=== PATIENT | male | born 1950 | race Caucasian/White ===

== ENCOUNTER 2018-03-30 08:34 | Day surgery (SDC) | payer SELFPAY ==
[2018-03-30 09:34] VITALS: BMI 23.8
[2018-03-30] MEDS ORDERED: Propofol 10 mg/ml Inj (20 ML) ONE (11:34)
--- NOTE | 2018-03-30 11:36 | CP.SDSHP ---
Same Day Surgery H & P - History Proposed Procedure: COLOSCOPY Pre-Op Diagnosis: SEE NOTES - Previous Medical/Surgical History Misc: Other Pain: 2.Mild Pain - Allergies Allergies: Allergies No Known Allergies Allergy (Unverified 03/30/18 09:32) - Physical Exam General Appearance: N Vital Signs: Vital Signs 03/30/18 03/30/18 09:15 11:33 Temperature 98.2 F 98.2 F Pulse Rate 72 72 Respiratory 20 20 Rate Blood Pressure 145/83 145/83 O2 Sat by Pulse 99 Oximetry Mental Status: Alert & Oriented x3 Neuro: WNL Heart: WNL Lungs: WNL GI: Other - {Optional Preform as Required} Breast: WNL Rectal: Other Integument: WNL : WNL Ortho: WNL ENT: WNL - Impression Pt. Evaluated Today:Candidate for Anesthesia & Procedure: Yes - Date & Time Time: 11:36 Short Stay Discharge - Short Stay Discharge Admitting Diagnosis/Reason for Visit: ABNORMAL WEIGHT LOSS Disposition: HOME/ ROUTINE
[2018-03-30] MEDS ORDERED: Belladonna-Phenobarbital PO STA (12:23)
[2018-03-30 12:33] VITALS: O2SAT 100
[2018-03-30 13:17] VITALS: BP 153/82; PULSE 57; RESP 19; TEMP 98.2
== END 2018-03-30 13:10 | disposition home or self-care (01) ==
LOC: C.ENDO 08:34
PROVIDERS: ATTEND Specialist
DX: D12.2 Benign neoplasm of ascending colon (principal); K64.8 Other hemorrhoids; K57.30 Diverticulosis of large intestine without perforation or abscess without bleeding; R63.4 Abnormal weight loss
CPT/HCPCS: 45381; J2704

== ENCOUNTER 2018-04-01 07:44 | Day surgery (SDC) | payer SELFPAY ==
[2018-04-01] MEDS ORDERED: Lactated Ringer's 1,000 ML IV ONE (10:03)
--- NOTE | 2018-04-01 10:03 | CP.SDSHP ---
Same Day Surgery H & P - History Proposed Procedure: EGD Pre-Op Diagnosis: SEE NOTES - Previous Medical/Surgical History Misc: Other Pain: 4.Moderate Pain Previous Surgical History: COLON POLYP - Allergies Allergies: Allergies No Known Allergies Allergy (Unverified 03/30/18 09:32) - Physical Exam General Appearance: N Vital Signs: Vital Signs 04/01/18 08:09 Temperature 97.8 F Pulse Rate 60 Respiratory 18 Rate Blood Pressure 142/78 O2 Sat by Pulse 100 Oximetry Mental Status: Alert & Oriented x3 Neuro: WNL Heart: WNL Lungs: WNL GI: Other - {Optional Preform as Required} Breast: WNL Abdomen: Other Rectal: Other Integument: WNL : WNL Ortho: WNL ENT: WNL - Impression Pt. Evaluated Today:Candidate for Anesthesia & Procedure: Yes - Date & Time Time: 10:03 Short Stay Discharge - Short Stay Discharge Admitting Diagnosis/Reason for Visit: BODY WEIGHT LOSS Disposition: HOME/ ROUTINE
[2018-04-01] MEDS ORDERED: Belladonna-Phenobarbital PO STA ×3 (10:04→12:05)
[2018-04-01] MEDS ORDERED: Propofol 10 mg/ml Inj (20 ML) ONE (10:05)
[2018-04-01] MEDS ORDERED: Pantoprazole 40 mg EC Tab PO ONE ×3 (10:40→12:15)
[2018-04-01] MEDS ORDERED: Sucralfate 1 gm/10 ml Oral Susp UD PO ONE ×2 (10:50→12:15)
[2018-04-01 11:01] VITALS: TEMP 97.1
[2018-04-01 11:02] VITALS: O2SAT 100
[2018-04-01 11:24] LABS: EOS # 0.2 K/uL (0.0-0.7); EOS % 7.6 % (0.0-4.0); HEMOGLOBIN 12.6 g/dL (12.0-18.0); LYMPH # 1.4 K/uL (1.0-4.3); LYMPH % 42.4 % (20.0-40.0); MEAN CELL VOLUME 87.7 fL (80.0-94.0); MEAN CORPUSCULAR HEMOGLOBIN 30.4 pg (27.0-31.0); MEAN CORPUSCULAR HGB CONC 34.7 g/dL (33.0-37.0); MEAN PLATELET VOLUME 8.6 fL (7.2-11.7); MONO # 0.3 K/uL (0.0-0.8); MONO % 10.1 % (0.0-10.0); NEUT # 1.3 K/uL (1.8-7.0); NEUT % 38.9 % (50.0-75.0); NRBC % 0.3 % (0.0-2.0); RBC 4.14 Mil/uL (4.40-5.90); RED CELL DISTRIBUTION WIDTH 13.8 % (11.5-14.5); WHITE BLOOD COUNT 3.2 K/uL (4.8-10.8)
[2018-04-01 11:30] LABS: ALB/GLOB RATIO 1.3 (1.0-2.1); ALBUMIN 3.6 g/dL (3.5-5.0); ALT/SGPT 30 U/L (21-72); AST/SGOT 29 U/L (17-59); BLOOD UREA NITROGEN 14 mg/dL (9-20); CALCIUM 9.2 mg/dl (8.6-10.4); GFR AFRICAN-AMERICAN > 60; GFR NON-AFRICAN AMERICAN > 60
[2018-04-01 12:56] VITALS: BP 162/81; PULSE 55; RESP 18
--- NOTE | 2018-04-01 14:37 | RAD ---
Date of service: 04/01/2018 HISTORY: GASTRIC MASS LESION R/O LUNG Lesion COMPARISON: 03/25/2018. Two-view chest TECHNIQUE: Chest PA and lateral FINDINGS: LUNGS: No active pulmonary disease. PLEURA: No significant pleural effusion identified. No pneumothorax apparent. CARDIOVASCULAR: No radiographic findings to suggest acute or significant cardiovascular disease. OSSEOUS STRUCTURES: No significant abnormalities. Healed posterior lateral right rib fractures VISUALIZED UPPER ABDOMEN: Normal. OTHER FINDINGS: None. IMPRESSION: No active disease. No significant interval change compared to the prior examination(s).
== END 2018-04-01 12:20 | disposition home or self-care (01) ==
LOC: C.ENDO 07:44
PROVIDERS: ATTEND Specialist
DX: R63.4 Abnormal weight loss (principal); R10.84 Generalized abdominal pain; R10.13 Epigastric pain; K22.10 Ulcer of esophagus without bleeding; I85.00 Esophageal varices without bleeding; C16.1 Malignant neoplasm of fundus of stomach
CPT/HCPCS: 36415; 43235; 71046; 80053; 82105; 82378; 85025; 85730; 86301; J2001; J2704; J7120